=== PATIENT | male | born 1955 | race Caucasian/White ===

== ENCOUNTER → 2019-12-15 | Outpatient (CLI) | payer MEDICARE ==
[~2019-12-15] VITALS: Ht 193 cm; Wt 129.3 kg
[2019-12-15 11:30] VITALS: BP 125/93
[2019-12-15 12:33] LABS: HEMATOCRIT 49.3 % (42.0-52.0); HEMOGLOBIN 16.6 gm/dL (14.0-18.0); MCH 30.7 pg (26.0-34.0); MCHC 33.7 g/dL (28.0-37.0); MCV 91.2 fL (80.0-100.0); MPV 10.6 fl. (7.2-11.1); RBC 5.4 mil/uL (4.50-6.00); RDW-CV 13.7 % (10.5-14.5); WBC 10.4 thou/uL (4.0-11.0)
[2019-12-15 12:37] LABS: CALCIUM 9.2 mg/dL (8.5-10.1); CREATININE 0.9 mg/dL (0.6-1.3); POTASSIUM 4.3 mmol/L (3.5-5.1)
[2019-12-15 15:03] VITALS: BP 131/68
[2019-12-15 15:19] VITALS: BP 128/71
--- NOTE | 2019-12-20 17:11 | OP ---
[address] [address] OPERATIVE REPORT Name: DONA VELA Room: [facility]#: [id number] Admission: 12/15/19 Attend Phys: Alex Sadler MD Discharge: Date of : 51 Report #: [id number] THIS REPORT FOR: //name// cc: Ernesto Walker III, III, Herbert E. DO ~ THIS REPORT FOR: //name// CC: Ernesto Sadler DATE OF SERVICE: 12/15/2019 PREOPERATIVE DIAGNOSIS: Nonhealing ischemic ulcer, left lateral foot. POSTOPERATIVE DIAGNOSIS: Nonhealing ischemic ulcer, left lateral foot. PROCEDURES: 1. Aortogram runoff, left lower extremity. 2. Angioplasty and stenting, recurrent stenosis, left iliac artery origin. 3. Ultrasound guidance for arterial access left common femoral artery with image saved. SURGEON: Alex Sadler MD AGENCY OWNER: [employer]. COMPLICATIONS: None. ANESTHESIA: Local sedation. INDICATIONS FOR PROCEDURE: The patient is well known to me. He is a 64-year-old male, vasculopath, who presents with nonhealing ulcer of his left foot. He has a previous iliac intervention at an outside facility. 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 We plan to proceed with left leg angiogram with intervention of the iliac artery. Informed consent was obtained from the patient with risks including but not limited to bleeding, infection, need for further surgery, pain, , heart attack, stroke, amputation. The patient understood these risks and was agreeable to proceed. DESCRIPTION OF PROCEDURE: The patient was taken to the angio suite and placed in supine position. After adequate sedation was initiated, his left groin was prepped and draped in usual sterile fashion. Timeout was performed. I infused 10 mL of 1% lidocaine throughout the procedure for local anesthetic. Under ultrasound guidance with an image saved, I cannulated the left common femoral artery without difficulty. I used Seldinger technique [place] [address] OPERATIVE REPORT Name: DONA VELA Room: [facility]#: [id number] Admission: 12/15/19 Attend Phys: Alex Sadler MD Discharge: Date of : 51 Report #: [id number] 6-Sinhala sheath. With some difficulty, I was able to use a wire to cross the severe stenosis of the left common iliac stent. The left iliac stent was crushed. This is a balloon expandable stent. I was able to successfully cross the stenosis/occlusion. I angioplastied this sequentially with a 4 mm, 6 mm and 10 mm balloons. I then placed a 12 x 40 E Luminexx self-expanding stent recovering this area. I post-dilated the stent with a 10 mm balloon. Completion imaging showed excellent result. There was maintained patency throughout the other kissing stent on the right side. I then performed an angiogram runoff of the left leg with following findings. FINDINGS ON ANGIOGRAM: 1. Distal aorta is widely patent. 2. There is kissing stents in the bilateral iliac arteries. 3. The left iliac stent is crushed. 4. After angioplasty and stenting, it is widely patent. 5. Left external iliac, internal iliac, common femoral, profunda femoral arteries are widely patent. 6. Left SFA is diffusely diseased, but no hemodynamically significant stenosis. Previous SFA stents are widely patent. 7. Left popliteal artery is widely patent with 3-vessel runoff. I then removed my sheath and wire, and placed a 6-Sinhala Angio-Seal without complication. There was no bleeding or hematoma. The patient tolerated the procedure well and was taken alert and awake to recovery room in good condition. All needle and instrument counts were correct. <ELECTRONICALLY SIGNED> By: Alex Sadler MD 12/20/19 1711 [id number] 1933Alex Sadler MD /nt
== END | disposition home or self-care (01) ==
LOC: M.INT 10:55
PROVIDERS: Surgery Vascular Surgery
DX: I70.245 Atherosclerosis of native arteries of left leg with ulceration of other part of foot (principal); L97.529 Non-pressure chronic ulcer of other part of left foot with unspecified severity; E11.9 Type 2 diabetes mellitus without complications; F17.210 Nicotine dependence, cigarettes, uncomplicated; Z98.890 Other specified postprocedural states; Z79.899 Other long term (current) drug therapy